=== PATIENT | female | born 1945 | race Caucasian/White ===

== ENCOUNTER 2021-11-05 11:11 | Outpatient (REF) | payer SELFPAY | END 2021-11-05 11:12 | disposition home or self-care (01) | LOC: HO.HAP 11:11 | PROVIDERS: Visit Provider Family Medicine | DX: Z46.1 Encounter for fitting and adjustment of hearing aid (principal); H90.3 Sensorineural hearing loss, bilateral | CPT/HCPCS: V5266 ==